=== PATIENT | female | born 2000 | race Hispanic/Latino ===

== ENCOUNTER 2021-11-17 10:59 | Inpatient (IN) | payer OTHER ==
[2021-11-17 11:44] VITALS: BMI 26.8
[2021-11-17] MEDS ORDERED: Lidocaine 1% (PF) 30 ML VIAL SC PRN (11:46)
[2021-11-17] MEDS ORDERED: Misoprostol 200 MCG TAB PR PRN (11:46)
[2021-11-17] MEDS ORDERED: Docusate 100 MG CAP PO PRN (11:46)
[2021-11-17] MEDS ORDERED: Promethazine HCl 25 MG/ML VIAL IM PRN ×2 (11:46→23:35)
[2021-11-17] MEDS ORDERED: Ondansetron PF 4 MG/2 ML Vial IVP PRN ×2 (11:46→23:35)
[2021-11-17] MEDS ORDERED: Methylergonovine 0.2 MG/ML VIAL IM PRN ×2 (11:46→23:35)
[2021-11-17] MEDS ORDERED: Butorphanol Tartrate 1 MG/ML VIAL SLOW IVP PRN (11:46)
[2021-11-17] MEDS ORDERED: HYDROcodone/Acetaminophen 5/325 mg Tablet PO PRN ×2 (11:46→23:35)
[2021-11-17] MEDS ORDERED: Carboprost 250 MCG/ML AMP IM PRN (11:46)
[2021-11-17] MEDS ORDERED: Diphenoxylate HCl/Atropine Tablet PO PRN ×2 (11:46)
[2021-11-17] MEDS ORDERED: Ibuprofen 800 MG TAB PO PRN (11:46)
[2021-11-17] MEDS ORDERED: Acetaminophen 500 MG TAB PO PRN (11:46)
[2021-11-17] MEDS ORDERED: hydrALAZINE 20 MG/ML VIAL SLOW IVP PRN ×2 (11:46→23:35)
[2021-11-17] MEDS ORDERED: NS w/ Oxytocin 30 units 500 ML IV SCH ×3 (12:00→23:59)
[2021-11-17] MEDS ORDERED: NS w/ Oxytocin 30 units 500 ML IVPB SCH (12:00)
[2021-11-17] MEDS: Lactated Ringer's 1,000 ML IV SCH ×2 (12:08→17:28)
[2021-11-17 12:39] LABS: Hemoglobin 9.6 g/dL (12.0-15.5); Mean Corpuscular HGB CONC 29.9 g/dL (32.0-36.0); Mean Corpuscular Hemoglobin 23.8 pg (27.0-33.0); Mean Corpuscular Volume 79.5 fl (81.6-98.3); Mean Platelet Volume 12.3 fl (7.4-10.4); Platelet Count 284 10x3/uL (150-450); RBC Distribution Width 15.3 % (11.5-14.5); Red Blood Cell (RBC) Count 4.04 10x6/uL (3.90-5.03); White Blood Cell (WBC) Count 9.4 10x3/uL (3.5-10.5)
[2021-11-17 13:13] LABS: Hep B Surf Ag Non-Reactive S/CO (NonReactive)
[2021-11-17 13:14] LABS: Syphilis Antibody Nonreactive (Nonreactive); Syphilis Antibody Index 0.05 S/CO (<1.00 Non-Reactive)
[2021-11-17 15:35] LABS: SARS-CoV-2 NAA Rapid Test Not Detected (NotDetected)
[2021-11-17] MEDS ORDERED: Misoprostol 200 MCG TAB VAG PRN (23:35)
[2021-11-17] MEDS ORDERED: Measles/Mumps/Rubella 10 MCG/0.5 ML VIAL SC ONE (23:35)
[2021-11-17] MEDS ORDERED: Boostrix 0.5 ML (Tdap) VIAL IM ONE (23:35)
[2021-11-17] MEDS ORDERED: Zolpidem Tartrate 5 MG TAB PO PRN (23:35)
[2021-11-17] MEDS ORDERED: Varicella virus, LIVE 0.5 ML VIAL SC ONE (23:35)
[2021-11-17] MEDS ORDERED: Preparation H Ointment 28 GM TUBE PR PRN (23:35)
[2021-11-17] MEDS ORDERED: Bisacodyl 10 MG SUPP PR PRN (23:35)
[2021-11-17] MEDS ORDERED: Benzocaine-Menthol 82.5 ML CAN TOP PRN (23:35)
[2021-11-17] MEDS ORDERED: Lanolin Ointment 7 GM TUBE TOP PRN (23:35)
[2021-11-17] MEDS ORDERED: Milk Of Magnesia 30 ML UDCUP PO PRN (23:35)
[2021-11-17] MEDS ORDERED: diphenhydrAMINE 25 MG CAP PO PRN (23:35)
[2021-11-17] MEDS ORDERED: Ibuprofen 800 MG TAB PO SCH (23:45)
[2021-11-17] MEDS ORDERED: Docusate Calcium (SURFAK) 240 MG CAP PO SCH (23:45)
[2021-11-18] MEDS: Ibuprofen 800 MG TAB PO SCH ×3 (05:10→21:19)
[2021-11-18 06:58] LABS: Mean Corpuscular HGB CONC 29.9 g/dL (32.0-36.0); Mean Corpuscular Hemoglobin 23.6 pg (27.0-33.0); Mean Corpuscular Volume 79.1 fl (81.6-98.3); Mean Platelet Volume 12.5 fl (7.4-10.4); Platelet Count 251 10x3/uL (150-450); RBC Distribution Width 15.3 % (11.5-14.5); Red Blood Cell (RBC) Count 3.39 10x6/uL (3.90-5.03); White Blood Cell (WBC) Count 13.2 10x3/uL (3.5-10.5)
[2021-11-18] MEDS: Ferrous Sulfate 325 MG TAB PO SCH ×2 (08:32→16:38)
[2021-11-18] MEDS: Docusate Calcium (SURFAK) 240 MG CAP PO SCH ×2 (08:33→21:20)
[2021-11-18] MEDS ORDERED: Prenatal Vitamin 1 TAB PO SCH (09:00)
[2021-11-18 22:24] VITALS: BP 156/83; TEMP 98.7
== END 2021-11-18 22:05 | disposition home or self-care (01) | DRG 807 ==
LOC: CSHLD 10:59 → CSHPP 23:00
PROVIDERS: ADMIT Obstetrics & Gynecology; ATTEND Obstetrics & Gynecology
PROC: 10E0XZZ Delivery of Products of Conception, External Approach (ICD-10-PCS; principal; 2021-11-17)
DX: O13.4 Gestational [pregnancy-induced] hypertension without significant proteinuria, complicating childbirth (principal); Z37.0 Single live birth; Z20.822 Contact with and (suspected) exposure to COVID-19; Z3A.38 38 weeks gestation of pregnancy; O14.14 Severe pre-eclampsia complicating childbirth
CPT/HCPCS: 36415; 85027; 86780; 86850; 86900; 86901; 87340; J0595; J2590; J7120; U0002